=== PATIENT | female | born 1985 | race Caucasian/White ===

== ENCOUNTER 2019-12-01 11:12 | Outpatient (CLI) | payer OTHER ==
[~2019-12-01] VITALS: Ht 162.6 cm; Wt 75.0 kg
--- NOTE | 2019-12-01 11:15 | NUR ---
Pt arrives on unit ambulatory with spouse. Irregular ctx with pressure since 0600. Denies LOF and vaginal bleeding. Reports GFM. Changed into a gown. EFM and toco applied. VSS. SVE per this RN . Cervix posterior. Admission assessment completed. Pt updated on POC. Safety reviewed. No questions or concerns at this time.
[2019-12-01] MEDS ORDERED: PRILOTC (11:29)
[2019-12-01 12:18] VITALS: BP 139/85; PULSE 80; TEMP 98
--- NOTE | 2019-12-01 12:18 | NUR ---
Pt off monitors for ambulation. 1305-Pt back to monitors.
--- NOTE | 2019-12-01 13:23 | NUR ---
SWATIE [birth year]/-2. Roles on unit and updated. Physician at bedside. Discusses POC and observation x 1 hour. risks and options discussed. Pt agrees to POC. No questions or concerns at this time.
[2019-12-01 14:00] VITALS: BP 129/81; PULSE 80
[2019-12-01 15:21] VITALS: BP 121/85; PULSE 93
--- NOTE | 2019-12-01 15:21 | NUR ---
Pt taken off monitors. Discharge instructions given. Pt leaves unit ambulatory with spouse.
== END 2019-12-01 15:30 | disposition home or self-care (01) ==
LOC: LDRO 11:12 → LDR 11:15 → LDRO 11:15 → LDR 15:30
DX: O26.899 Other specified pregnancy related conditions, unspecified trimester (principal); Z3A.00 Weeks of gestation of pregnancy not specified
CPT/HCPCS: OP

== ENCOUNTER 2019-12-07 06:43 | Inpatient (IN) | payer OTHER ==
[~2019-12-07] VITALS: Ht 162.6 cm; Wt 73.6 kg
[2019-12-07] VITALS (10 sets, daily range): BP systolic 114–140; BP diastolic 62–86; PULSE 72–100; TEMP 98.1–99.5
[~2019-12-07 06:43] MED LIST: PRILOTC
--- NOTE | 2019-12-07 07:00 | NUR ---
0650- Pt arrives on unit, into bathroom, changes into gown, voids. 0655- Pt into bed, very uncomfortable with UCs. EFM and TOCO on and tracing well. Pt states, "My water broke." 0659- SVE by this RN, /2, large amount of clear fluid noted with exam. 0705- Dr Bowling notified, orders received.
--- NOTE | 2019-12-07 07:15 | NUR ---
0712- IV start, labs drawn, IVF bolus initiated. Pt verbalizes feeling pressure and needing to push. SVE, Pt complete/+2. Emergency call light pulled. Gabriel RN, Lisa Garcia, RN, Lisa Layne, Nurseelier RN, Cherelle Mcnair, licensed chemical spray technician, Kamla, TENISHA at bedside. Dr Bowling notified to come for delivery by Sacha, ALISHA. Pt and room prepared for delivery. Pt encouraged to breathe through UCs. 0715- FHR not tracing due to mother thrashing around in bed. EFM adjusted. FHR intermittently noted to be 70-90bpm. 0720- O2 sat monitor on Pt and tracing. Pt repositioned side to side 0726- Pt assisted to knee chest. EFM continues to be adjusted. Tracing intermittently. 0730- Dr Bowling at bedside, reviews strip. Pt assisted to semi-fowlers, bed broken down for delivery. Pt begins pushing with UCs. Pt cries out in pain, wanting pain medication. MD reviews pain management options. Pt continues pushing. 0809- of viable female . Vigours cry noted, tended to by ALISHA Jama. Cord clamped and cut. Cord blood obtained. 0813- Spontaneous delivery of placenta. Pitocin started at 333ml/hr. Lidocaine used for 2nd degree perineal repair. Pericare completed. Ice pack on.
[2019-12-07 09:18] LABS: BASO # 0.1 (0.0-0.2); BASO % 0.5 % (0.0-2.0); EOS # 0.1 (0.0-0.7); EOS % 0.7 % (0-4.0); GRAN # 13.3 (1.4-6.5); GRAN % 76.6 % (42.2-75.2); HEMOGLOBIN 11.6 g/dl (12.5-16.0); LYMPH # 2.7 (1.2-3.4); LYMPH % 15.4 % (20.0-51.0); MEAN CELL VOLUME 83 fl (80.0-100.0); MEAN CORPUSCULAR HEMOGLOBIN 27 pg (27.0-31.0); MEAN CORPUSCULAR HGB CONC 33 g/dl (33.0-37.0); MEAN PLATELET VOLUME 13.9 fl (7.4-10.4); MONO # 1.1 (0.1-0.6); MONO % 6.2 % (1.7-9.3); PLATELET COUNT 231 K/mm3 (130-400); RED BLOOD COUNT 4.24 M/mm3 (4.10-5.30); REDCELL DISTRIBUTION WIDTH-CV 12.9 % (11.5-14.5)
[2019-12-07 09:19] LABS: HEMATOCRIT 35.3 % (37.0-47.0)
[2019-12-07] MEDS ORDERED: TYLENOL 500MG500 MG PO (09:25)
--- NOTE | 2019-12-07 10:45 | NUR ---
1045- Pt ambulates to bathroom independently. Unable to void at this time. Pericare completed and explained. Underwear and peripad on. Pt ambulates to PP room. Pt and oriented to room. Call light within reach.
[2019-12-08 01:50] VITALS: BP 115/82; PULSE 79; TEMP 98
[2019-12-08 06:49] LABS: HEMATOCRIT 29.7 % (37.0-47.0); HEMOGLOBIN 9.5 g/dl (12.5-16.0)
[2019-12-08 07:40] VITALS: BP 115/79; PULSE 88; TEMP 98.1
[2019-12-08] MEDS ORDERED: IBU600 MG PO (08:44)
--- NOTE | 2019-12-08 09:10 | NUR ---
Initial visit; Parents thanked Group Home Supervisor for offering congratulations and God's blessings for the of their daughter. Group Home Supervisor thanked family for choosing [facility].
== END 2019-12-08 13:00 | disposition home or self-care (01) | DRG 807 ==
LOC: LDRO 06:43 → LDR 07:05 → OB 11:00
PROVIDERS: Obstetrics & Gynecology; ADMIT Obstetrics & Gynecology
PROC: 10E0XZZ Delivery of Products of Conception, External Approach (ICD-10-PCS; principal; 2019-12-07)
PROC: 0KQM0ZZ Repair Perineum Muscle, Open Approach (ICD-10-PCS; 2019-12-07)
DX: O34.211 Maternal care for low transverse scar from previous cesarean delivery (principal); Z37.0 Single live birth; O76 Abnormality in fetal heart rate and rhythm complicating labor and delivery; Z3A.38 38 weeks gestation of pregnancy; O70.1 Second degree perineal laceration during delivery
CPT/HCPCS: J2590; J7120